=== PATIENT | male | born 1955 | race Caucasian/White ===

== ENCOUNTER 2022-08-31 10:15 | Day surgery (SDC) | payer BC, OTHER ==
[2022-08-29 12:26] LABS: BASOPHILS # (AUTO) 0.1 X10'3 (0-0.2); BASOPHILS % (AUTO) 0.7 % (0-1); EOSINOPHILS # (AUTO) 0.2 X10'3 (0-0.9); EOSINOPHILS % (AUTO) 3.1 % (0-6); HEMATOCRIT 49.1 % (42.0-52.0); HEMOGLOBIN 16.1 g/dl (14.0-17.9); LYMPHOCYTES # (AUTO) 1.5 X10'3 (1.1-4.8); LYMPHOCYTES % (AUTO) 19.3 % (21-51); MEAN CORPUSCULAR HGB CONC 32.8 g/dL (33.0-36.5); MEAN CORPUSCULAR VOLUME 79.5 FL (78-98); MEAN PLATELET VOLUME 10.4 FL (7.4-10.4); MONOCYTES # (AUTO) 0.7 X10'3 (0-0.9); MONOCYTES % (AUTO) 9.6 % (2-12); NEUTROPHILS # (AUTO) 5.2 X10'3 (1.8-7.7); NEUTROPHILS % (AUTO) 67.3 % (42-75); PLATELET COUNT 157 X10'3 (140-440); RED BLOOD COUNT 6.18 X10'6 (4.70-6.10); RED CELL DISTRIBUTION WIDTH 14.4 % (11.5-14.5); WHITE BLOOD COUNT 7.7 X10'3 (4.5-11.0)
[2022-08-29 12:33] LABS: ANION GAP 3 (8-16); BLOOD UREA NITROGEN 26 MG/DL (7-18); BUN/CREATININE RATIO 19.4 (5.4-32.0); CALCIUM 9.7 MG/DL (8.5-10.1); CHLORIDE 103 MMOL/L (99-107); CREATININE 1.34 MG/DL (0.60-1.10); GLUCOSE 82 MG/DL (70-104); POTASSIUM 3.9 MMOL/L (3.5-5.1); SODIUM 141 MMOL/L (135-145); TOTAL CARBON DIOXIDE 34.7 MMOL/L (24-32); eGFR 53 ML/MIN
[~2022-08-31] VITALS: Ht 175.3 cm; Wt 99.6 kg
[2022-08-31] VITALS (12 sets, daily range): BP systolic 122–164; BP diastolic 63–113
[2022-08-31] MEDS ORDERED: normal saline 1,000 ML IV SCH ×2 (10:30→11:00)
[2022-08-31] MEDS ORDERED: diphenhydrAMINE 25mg capsule PO PRN ×2 (10:30→11:00)
[2022-08-31] MEDS ORDERED: LORazepam 0.5 MG tablet PO PRN ×2 (10:30→11:00)
[2022-08-31] MEDS ORDERED: VENL75CA61 PO (10:36)
[2022-08-31] MEDS ORDERED: ADV50250 (10:36)
[2022-08-31] MEDS ORDERED: METO-384 PO (10:36)
[2022-08-31] MEDS ORDERED: HYDR12.55 PO (10:36)
[2022-08-31] MEDS ORDERED: ROSU40TA22 (10:36)
[2022-08-31] MEDS ORDERED: LOSA100T57 (10:36)
[2022-08-31] MEDS ORDERED: TEST75GE10 TOP (10:36)
[2022-08-31] MEDS ORDERED: FLO0.4C PO (10:36)
[2022-08-31] MEDS ORDERED: FAMO-128 PO (10:37)
[2022-08-31] MEDS ORDERED: ASPI-1071 PO (10:38)
[2022-08-31] MEDS ORDERED: sodium bicarbonate 1meq/ml syr 150 ML in dextrose 5%-water 850 ML IV ONE (11:00)
[2022-08-31] MEDS ORDERED: verapamil 2.5 mg/ml inj IV ONE (11:02)
[2022-08-31] MEDS ORDERED: nitroGLYCERIN-Tridil 50MG/D5W 250 ML IV ONE (11:02)
[2022-08-31] MEDS ORDERED: midazolam 1 mg/ML 2ml injection ONE ×2 (11:02→12:50)
[2022-08-31] MEDS ORDERED: heparin 1,000unit/ml 10ml vial 10 ML ONE (11:03)
[2022-08-31] MEDS ORDERED: iohexol 350MG/ML 100ml bottle IV ONE ×3 (11:03→12:30)
[2022-08-31] MEDS ORDERED: fentaNYL/PF 50MCG/1 ML 2ML syringe ONE (11:03)
[2022-08-31] MEDS ORDERED: LIDOcaine 1% (10mg/ml) 2ml vial ONE (11:03)
[2022-08-31 11:16] LABS: APTT 34 SECONDS (22-32)
[2022-08-31] MEDS ORDERED: heparin 25,000 UNIT/250ml bag 250 ML IV ONE (12:07)
[2022-08-31] MEDS ORDERED: metoprolol tartrate 1mg/ml inj IV ONE (12:15)
[2022-08-31] MEDS ORDERED: ticagrelor 90mg tablet ONE (13:11)
--- NOTE | 2022-08-31 14:30 | NUR ---
Heparin gtt discontinued per orders.
[2022-08-31] MEDS: acetylcysteine 200 MG/ml 4ml vial PO PRN ×2 (14:47→18:24)
[2022-09-01] MEDS ORDERED: ticagrelor 90mg tablet PO SCH (08:00)
== END 2022-08-31 20:00 | disposition home or self-care (01) ==
LOC: SSTAY O 10:15
PROVIDERS: ATTEND Internal Medicine Cardiovascular Disease
DX: R94.39 Abnormal result of other cardiovascular function study (principal); I25.10 Atherosclerotic heart disease of native coronary artery without angina pectoris; E78.5 Hyperlipidemia, unspecified; G47.33 Obstructive sleep apnea (adult) (pediatric); F32.A Depression, unspecified; M16.11 Unilateral primary osteoarthritis, right hip; M19.042 Primary osteoarthritis, left hand; N40.0 Benign prostatic hyperplasia without lower urinary tract symptoms; I12.9 Hypertensive chronic kidney disease with stage 1 through stage 4 chronic kidney disease, or unspecified chronic kidney disease; N18.30 Chronic kidney disease, stage 3 unspecified; K21.9 Gastro-esophageal reflux disease without esophagitis; M51.36 Other intervertebral disc degeneration, lumbar region; J45.909 Unspecified asthma, uncomplicated; Z95.5 Presence of coronary angioplasty implant and graft; Z79.899 Other long term (current) drug therapy; Z79.82 Long term (current) use of aspirin; Z86.010 Personal history of colon polyps; Z96.641 Presence of right artificial hip joint; Z98.890 Other specified postprocedural states; Z79.01 Long term (current) use of anticoagulants; Z82.49 Family history of ischemic heart disease and other diseases of the circulatory system; Z83.3 Family history of diabetes mellitus; Z80.6 Family history of leukemia
CPT/HCPCS: 36415; 76937; 80048; 85025; 85347; 85610; 85730; 93005; 93458; 99152; 99153; A6258; C1725; C1751; C1769; C1874; C1894; C9600; C9601; J1644; J2250; J3010; J3490; J7030; J7070; Q9967; A6402

== ENCOUNTER 2023-02-27 14:27 | Outpatient (CLI) | payer OTHER ==
[~2023-02-27 14:27] MED LIST: ADV50250; ASPI-1071 PO; FAMO-128 PO; FLO0.4C PO; HYDR12.55 PO; LOSA100T58; METO-384 PO; ROSU40TA22; TEST75GE10 TOP; VENL75CA61 PO
== END 2023-02-27 23:59 | disposition home or self-care (01) ==
LOC: CARD DIAG 14:27
PROVIDERS: ATTEND Internal Medicine Pulmonary Disease
DX: I08.8 Other rheumatic multiple valve diseases (principal); G47.33 Obstructive sleep apnea (adult) (pediatric); G47.31 Primary central sleep apnea
CPT/HCPCS: 93306